=== PATIENT | male | born 1955 | race Caucasian/White ===

== ENCOUNTER → 2016-12-27 | Outpatient (CLI) | payer OTHER ==
--- NOTE | ~2016-12-27 | EKG ---
[address] [address] ELECTROCARDIOGRAM REPORT Name: IESHA BLANCO Room #: [facility]Gl[facility] HospitalNeelam#: [id number] Admission: 12/27/16 Attend Phys: Papo Lyons Discharge: Date of : 59 Report #: [id number] THIS REPORT FOR: //name// [facility] Test Date: 2016-12-27 Test Time: 11:50:32 Pat Name: IESHA BLANCO Department: Room: Gender: [employer]: Abisai MILLAN : 1955 Requested By: Papo Giron Order Number: [id number] MD: Minesh Rigsg Measurements Intervals [place] Rate: 51 P: 62 NC: 184 QRS: 59 QRSD: 123 T: 56 QT: 442 QTc: 408 Interpretive Statements Sinus bradycardia Otherwise no significant abnormality No previous ECG available for comparison Electronically Signed On 12-29-2016 13:24:22 CDT by Minesh Riggs [email or web address] <ELECTRONICALLY SIGNED> By: Minesh Riggs MD, [facility] 12/29/16 1324 1150 1150 Minesh Riggs MD, FACC /EPI
== END ==
LOC: CV 11:22
DX: Z01.818 Encounter for other preprocedural examination (principal); K40.90 Unilateral inguinal hernia, without obstruction or gangrene, not specified as recurrent